=== PATIENT | male | born 1930 | race Caucasian/White ===

== ENCOUNTER 2018-07-09 20:02 | Emergency (ER) | payer MEDICARE, BC ==
--- NOTE | 2018-07-09 21:00 | ED Physician Chart ---
ED Chief Complaint/HPI - Patient Information Date Seen:: 07/09/18 Time Seen:: 20:54 Chief Complaint:: dysuria History of Present Illness:: 87 yr old male from assistive living with dysuria freqency Allergies:: Allergies Allergy/AdvReac Type Severity Reaction Status Date / Time No Known Allergies Allergy Verified 07/09/18 20:35 Vitals:: Vital Signs - 8 hr 07/09/18 20:05 Temp 97.0 F HR 96 RR 18 BP 120/79 O2 Sat % 98 Family Medical History - Family Member Mother History Unknown: Yes ED Septic Shock - . Is Septic Shock (SBP<90, OR Lactate>4 mmol\L) present?: No - <6hrs of presentation: Vital Signs: Vital Signs - 8 hr 07/09/18 20:05 Temp 97.0 F HR 96 RR 18 BP 120/79 O2 Sat % 98 ED Reassessment (Disposition) - Diagnosis Diagnosis:: as ab-as abioe - Patient Disposition Discharge/Transfer:: Home Condition at Disposition:: Stable
[2018-07-09 22:01] LABS: % BASOPHILS 0.3 % (0.0-2.0); % EOSINOPHILS 3.9 % (0.0-5.0); % LYMPHOCYTES 27.2 % (20.0-50.0); % MONOCYTES 7.6 % (2.0-10.0); EOSINOPHILE ABSOLUTE 0.2 Th/cmm (0.1-0.4); HEMATOCRIT 37.8 % (41.0-60); HEMOGLOBIN 12.5 gm/dL (12-16); LYMPHOCYTE ABSOLUTE 1.6 Th/cmm (1.5-3.0); MEAN CELL VOLUME 88.2 fl (80-99); MEAN CORPUSCULAR HGB CONC 32.9 pg (28.0-36.0); MEAN PLATELET VOLUME 10.1 fl; MONOCYTE ABSOLUTE 0.5 Th/cmm (0.3-1.0); NEUTROPHILE ABSOLUTE 3.7 Th/cmm (1.8-8.0); PLATELET COUNT 143 Th/cmm (150-400); RED BLOOD COUNT 4.29 Mil/cmm (3.80-5.80); RED CELL DISTRIBUTION WIDTH 15.7 % (11.5-20.0)
[2018-07-09 22:21] LABS: ALB/GLOB RATIO 1.4 (1.0-1.8); ALBUMIN 3.7 gm/dL (4.2-5.5); ALKALINE PHOSPHATASE 71 U/L (34-104); ANION GAP 12.8 (7.0-16.0); BILIRUBIN,TOTAL 0.3 mg/dL (0.3-1.0); BUN - UREA NITROGEN 16 mg/dL (7-25); CALCIUM SERUM 9.3 mg/dL (8.6-10.3); CARBON DIOXIDE 26.6 mEq/L (21.0-31.0); CHLORIDE 107 mEq/L (98-107); CREATININE - SERUM 0.6 mg/dL (0.7-1.3); GLUCOSE 114 mg/dL (70-105); POTASSIUM SERUM 3.4 mEq/L (3.5-5.1); SGOT 16 U/L (13-39); SGPT/ALT 12 U/L (7-52); SODIUM SERUM 143 mEq/L (136-145); TOTAL PROTEIN,SERUM 6.3 gm/dL (6.0-8.3)
[2018-07-09 22:43] LABS: URINE SOURCE CLEAN C
[2018-07-09 22:44] LABS: URINE BILIRUBIN NEGATIVE (NEGATIVE); URINE BLOOD SMALL (NEGATIVE); URINE GLUCOSE (UA) NEGATIVE (NEGATIVE); URINE KETONE NEGATIVE (NEGATIVE); URINE LEUKOCYTE ESTERASE NEGATIVE (NEGATIVE); URINE MICROSCOPIC INDICATED? YES; URINE NITRATE NEGATIVE (NEGATIVE); URINE PROTEIN NEGATIVE (NEGATIVE); URINE UROBILINOGEN 0.2 E.U./dL (0.2 - 1.0)
[2018-07-09] MEDS ORDERED: Potassium Chloride 20 mEq ER Tab PO ONE (22:49)
[2018-07-09] MEDS: Potassium Chloride 20 mEq ER Tab PO ONE (22:51)
[2018-07-09 23:09] LABS: URINE CLARITY CLEAR (CLEAR); URINE COLOR STRAW
[2018-07-09 23:21] LABS: URINE RBC 0-2 /hpf (0-5)
[2018-07-09 23:22] LABS: URINE BACTERIA OCCASIONAL /hpf (NONE SEEN); URINE EPITHELIAL CELLS RARE /lpf (FEW); URINE WBC NONE SEEN /hpf (0-5)
--- NOTE | 2018-08-04 20:34 | ER Physician Documentation ---
DATE OF SERVICE: 07/09/2018 HISTORY OF PRESENT ILLNESS: The patient is an 87-year-old male with several medical problems, who came in from the custodial for possible UTI. PAST MEDICAL HISTORY: See nurse's note. PHYSICAL EXAMINATION: GENERAL: The patient is noncooperative. HEENT: Pupils equal and reactive to light. LUNGS: Clear. CARDIAC: Regular rate and rhythm. ABDOMEN: Soft. EXTREMITIES: No cyanosis, clubbing, or edema. DIAGNOSES: 1. Urinary tract infection. 2. Dysuria. The patient was treated and discharged back to the custodial. JOB# [id number]
== END 2018-07-10 01:05 | disposition home or self-care (01) ==
LOC: ER 20:02
DX: N39.0 Urinary tract infection, site not specified (principal); R30.0 Dysuria; R07.9 Chest pain, unspecified; Z79.899 Other long term (current) drug therapy
CPT/HCPCS: 99284; 96372; 93005; 36415; 85025; 81001; 80053; 87040 ×2; J0696